=== PATIENT | female | born 1985 | race Caucasian/White ===

== ENCOUNTER → 2016-12-19 | Outpatient (CLI) | payer BC ==
[2016-12-19 10:14] LABS: PROLACTIN 18.49 ng/mL
== END | disposition home or self-care (01) ==
LOC: C.LAB1850 07:03 → MERGE 07:03
PROVIDERS: ATTEND Obstetrics & Gynecology
DX: Z31.41 Encounter for fertility testing (principal)

== ENCOUNTER → 2017-02-03 | Outpatient (CLI) | payer BC | END | disposition home or self-care (01) | LOC: C.RAD1850 07:35 | PROVIDERS: ATTEND Obstetrics & Gynecology | DX: E03.9 Hypothyroidism, unspecified (principal) ==

== ENCOUNTER → 2017-04-16 | Outpatient (CLI) | payer BC ==
--- NOTE | 2017-04-16 10:58 | DIAGNOSTIC IMAGING REPORT ---
HYSTEROSALPINGOGRAM CLINICAL HISTORY: FERTILITY TESTING, DR TERRELL DOING COMPARISON STUDY: No previous studies for comparison. FINDINGS: Fluoroscopic assistance was provided for Dr. Terrell during hysterosalpingogram. 24 seconds of fluoroscopic time was utilized. 2 fluoroscopic spot images were acquired. Both fallopian tubes filled a normal fashion. There is free spillage bilaterally. Small filling defects within the uterus are felt to represent air bubbles IMPRESSION: The fallopian tubes appear normal bilaterally. There was free bilateral spillage. Electronically signed by: Fernando Hussein M.D. 04/16/2017 10:57 AM Dictated Date/Time: 04/16/2017 10:56 AM
--- NOTE | 2017-04-16 13:47 | OPERATIVE REPORT ---
DATE OF OPERATION: 04/16/2017 PROCEDURE NOTE The patient is a 31-year-old nulliparous white female who presents for ongoing infertility evaluation. She underwent hystersalpingogram using radiopaque dye and sterile technique. The patient tolerated the procedure well. Findings will be sent to Dr. De La Fuente and [facility]. I attest to the content of the Intraoperative Record and any orders documented therein. Any exception s are noted below.
== END | disposition home or self-care (01) ==
LOC: C.RAD 10:06
PROVIDERS: ATTEND Obstetrics & Gynecology
DX: Z31.41 Encounter for fertility testing (principal)

== ENCOUNTER → 2017-05-11 | Outpatient (CLI) | payer BC | END | disposition home or self-care (01) | LOC: C.LAB1850 13:18 | PROVIDERS: ATTEND Specialist | DX: O09.00 Supervision of pregnancy with history of infertility, unspecified trimester (principal); Z3A.00 Weeks of gestation of pregnancy not specified ==

== ENCOUNTER → 2017-05-11 | Outpatient (CLI) | payer BC ==
--- NOTE | 2017-05-11 16:27 | DIAGNOSTIC IMAGING REPORT ---
TRANS VAG-FEMALE PELVIS HISTORY: Pain PCOS, INFERTILITY COMPARISON: None. FINDINGS: Uterus: 6.4 cm maximum dimension Endometrial stripe: 3 mm Right ovary: 3 cm maximum dimension with normal vascular flow . Several sub-7 mm follicular cysts these measure 7, 6, and 5 mm respectively Left ovary: 2.3 cm maximum dimension with normal vascular flow . Several sub-8 mm follicular cysts. These measure 8 and 6 mm respectively Miscellaneous:No pelvic free fluid. IMPRESSION: No significant abnormality identified within the pelvis. Several small ovarian follicular cysts The above report was generated using voice recognition software. It may contain grammatical, syntax or spelling errors. Electronically signed by: Romain Santos M.D. 05/11/2017 4:26 PM Dictated Date/Time: 05/11/2017 4:24 PM
== END | disposition home or self-care (01) ==
LOC: C.ULTR 14:42
PROVIDERS: ATTEND Specialist
DX: N97.9 Female infertility, unspecified (principal); E28.2 Polycystic ovarian syndrome

== ENCOUNTER → 2017-05-19 | Outpatient (CLI) | payer BC | END | disposition home or self-care (01) | LOC: C.LAB1850 12:57 | PROVIDERS: ATTEND Obstetrics & Gynecology Reproductive Endocrinology | DX: Z31.41 Encounter for fertility testing (principal) ==

== ENCOUNTER → 2017-07-14 | Outpatient (CLI) | payer BC | END | disposition home or self-care (01) | LOC: C.LAB1850 13:14 | PROVIDERS: ATTEND Specialist | DX: O09.00 Supervision of pregnancy with history of infertility, unspecified trimester (principal); Z3A.00 Weeks of gestation of pregnancy not specified ==

== ENCOUNTER → 2017-08-04 | Outpatient (CLI) | payer BC | END | disposition home or self-care (01) | LOC: C.LAB1850 15:09 | PROVIDERS: ATTEND Specialist | DX: O09.00 Supervision of pregnancy with history of infertility, unspecified trimester (principal) ==

== ENCOUNTER → 2017-11-30 | Outpatient (CLI) | payer BC | END | disposition home or self-care (01) | LOC: C.PAPS 18:34 | PROVIDERS: ATTEND Physician Assistant | DX: Z01.419 Encounter for gynecological examination (general) (routine) without abnormal findings (principal) ==

== ENCOUNTER 2018-12-12 01:42 | Inpatient (IN) ==
[2018-12-12] MEDS ORDERED: LACTATED RINGER'S 1,000 ML IV PRN ×3 (02:01→08:52)
[2018-12-12] MEDS ORDERED: LACTATED RINGER'S 1,000 ML IV SCH (02:15)
[2018-12-12 02:24] LABS: Hematocrit (blood only) 34.5 % (37-47); Hemoglobin 11.8 g/dL (12.0-16.0); Nucleated RBC # (auto) 0.03 K/uL (0-0); Nucleated RBC % (auto) 0.2 %; Platelet Count 284 K/uL (130-400); RDW Coefficient of Variation 13.4 % (11.5-14.5); RDW Standard Deviation 40.8 fL (36.4-46.3); Red Blood Count 4.06 M/uL (4.2-5.4); White Blood Count 15.76 K/uL (4.8-10.8)
[2018-12-12] MEDS ORDERED: ePHEDrine sulfate 50 MG/ML AMP ONE (02:33)
[2018-12-12] MEDS ORDERED: BUPIVACAINE 0.25% 30 ML VIAL ONE (02:33)
[2018-12-12] MEDS ORDERED: fentaNYL citrate 100 MCG/2 ML VIAL ONE ×2 (02:34→05:52)
[2018-12-12 02:35] LABS: Mean Corpuscular Hgb Conc 34.2 g/dL (32-36)
[2018-12-12] MEDS ORDERED: fentaNYL 2MCG/ML ROPIV 1.25MG/ML 100 ML BAG EPI ONE (02:35)
--- NOTE | 2018-12-12 03:06 | History & Physical Report ---
Date of Service December 12, 2018 Assessment & Plan (1) 40 weeks gestation of : (2) Active labor at term: admit iv labs. fhts categ 1, desires epidural, will bolus ivf and consult anesthesia. arom when comfortable. History of Present Illness Chief Complaint: regular ctx Primary Care Provider: Jose J Mckeon 32yo at 40+wks ega presents to L&D with above cc. She has had contractions all day 12/11/18 that worsened in intensity and became more frequent. Advised to come to hospital for labor check. No rom or vb. FM. On arrival cx was 6cm. Desires epidural. PNC c/b 1. hypothyroidism, on meds 2. IVF/ICSI, growth u/s nl. nl echo. 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 PNL rh pos, ri OBH: g1 GYNH: nl paps, no stds PMH: hypothyroid PSH: wisdom teeth Allg: nkda Meds: synthroid, mvi SH: no tob/etoh/drugs FH: no beverly anom or mr Allergies Allergy/AdvReac Type Severity Reaction Status Date / Time No Known Allergies Allergy Unverified 12/12/18 02:01 Home Medications Home Medications Medication Instructions Recorded Confirmed Type PNV cmb#95-ferrous fumarate-FA 1 tab PO PM 12/06/18 12/12/18 History [] levothyroxine [Synthroid] 50 mcg PO 5XWK 12/06/18 12/12/18 History levothyroxine [Synthroid] 100 mcg PO 2XWK 12/06/18 12/12/18 History prednisone 60 mg PO DAILY 7 Days #21 tab 12/06/18 12/12/18 Rx Patient History Medical History Hypothyroid PCOS (polycystic ovarian syndrome) Surgical History Hx of wisdom tooth extraction (Resolved) Social History Preferred Language: Korean Beliefs That Will Affect Care: None marital status: Current Living Situation: Spouse Other Information That Helps Us Care for You: No Feels Safe at Home: Yes Smoking Status: Never smoker Hx Alcohol Use: No Hx Substance Use: No Review of Systems per hpi Physical Exam Vital Signs (Past 24 Hours): Last Vital Signs Temp 36.4 C L 12/12/18 01:52 Resp 18 12/12/18 01:52 Constitutional: WD/WN, vitals as above Genitourinary: Manual OB Exam: + cervical dilation 6 cm (per nurse) OB Exam Monitor Tracing: + external FHT monitor used (125 mod variability, reactive for gest age), + external uterine monitor used (q3-4), + category I and + normal FHT variability
--- NOTE | 2018-12-12 03:27 | Anesthesiology Consultation ---
Date of Service December 12, 2018 Assessment & Plan Chart Review Chart Review: Acceptable Risk for Surgery Consults Requested none History Height/Weight Height: 5 ft 2 in Weight: 78.018 kg Allergies Allergy/AdvReac Type Severity Reaction Status Date / Time No Known Allergies Allergy Unverified 12/12/18 02:01 Medications Home Medications Medication Instructions Recorded Confirmed Last Taken PNV cmb#95-ferrous fumarate-FA 1 tab PO PM 12/06/18 12/12/18 12/11/18 08:00 [] levothyroxine [Synthroid] 50 mcg PO 5XWK 12/06/18 12/12/18 12/11/18 08:00 levothyroxine [Synthroid] 100 mcg PO 2XWK 12/06/18 12/12/18 12/11/18 08:00 prednisone 60 mg PO DAILY 7 Days #21 tab 12/06/18 12/12/18 12/11/18 08:00 Active Medications Generic Name Dose Route Start Last Admin Trade Name Freq PRN Reason Stop Dose Admin Lactated Ringer's 1,000 mls @ 999 mls/hr 12/12/18 02:01 12/12/18 03:00 Lr IV 01/11/19 02:00 125 mls/hr .Q1H1M PRN Infusion (Pre-Anesthesia) Past Medical History Medical History Hypothyroid PCOS (polycystic ovarian syndrome) Past Family History Family History Other Diabetes Hypertension Past Surgical History Surgical History Hx of wisdom tooth extraction (Resolved) Social History Smoking Status: Never smoker Hx Alcohol Use: No Hx Substance Use: No Physical Exam Vital Signs Last Vital Signs Temp 36.4 C L 12/12/18 01:52 Pulse 71 12/12/18 03:25 Resp 18 12/12/18 03:17 BP 125/73 12/12/18 03:25 Pulse Ox 99 12/12/18 03:24 Testing Laboratory Results 12/12/18 02:14
[2018-12-12] MEDS ORDERED: NALOXONE HCL 0.4 MG/1 ML VIAL/CARP IV PRN (03:36)
[2018-12-12] MEDS ORDERED: fentaNYL 2MCG/ML ROPIV 1.25MG/ML 100 ML BAG EPI PRN (03:36)
[2018-12-12] MEDS ORDERED: DiphenhydrAMINE HCL 50 MG/ML VIAL IV PRN (03:36)
[2018-12-12] MEDS ORDERED: ePHEDrine sulfate 50 MG/ML AMP IV PRN (03:36)
[2018-12-12] MEDS ORDERED: NALOXONE HCL 1 MG in SODIUM CHLORIDE 0.9% 1000ML 1,000 ML IV PRN (03:36)
[2018-12-12] MEDS ORDERED: NALBUPHINE HCL INJ 10 MG/ML AMP IV PRN (03:36)
--- NOTE | 2018-12-12 03:56 | Obstetrical Progress Note ---
Date of Service December 12, 2018 Assessment & Plan (1) Active labor at term: nursing to reexamine pt in 2hr and begin 2nd stage if complete. 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 (4) Thin meconium stained amniotic fluid: reviewed management and tried to reassure Subjective comfortable with epidural. apparently today was last dose of prednisone for estrada's palsy--was given 60mg po qd Physical Exam Vital Signs (Past 24 Hours): Last Vital Signs Temp 36.4 C L 12/12/18 01:52 Pulse 60 12/12/18 03:49 Resp 18 12/12/18 03:30 BP 128/77 12/12/18 03:48 Pulse Ox 99 12/12/18 03:49 Constitutional: WD/WN, vitals as above Genitourinary: Manual OB Exam: + cervical dilation 8 cm, + cervical effacement 100%, + station 0 and + amniotic fluid (AROM) meconium OB Exam Monitor Tracing: + external FHT monitor used (125 mod variability), + external uterine monitor used (q3-4) and + category I
[2018-12-12] MEDS ORDERED: LIDOCAINE HCL 2% MPF (LOCAL) 5 ML VIAL INFIL ONE (05:52)
[2018-12-12] MEDS ORDERED: OXYTOCIN 30 UNITS/500ML NSS ONE (06:21)
--- NOTE | 2018-12-12 08:03 | Obstetrical Progress Note ---
Date of Service December 12, 2018 Assessment & Plan (1) 40 weeks gestation of : (2) Thin meconium stained amniotic fluid: (3) Active labor at term: continued 2nd stage. fhts reassuring. Subjective pt is pushing, complaining of being exhausted Physical Exam Vital Signs (Past 24 Hours): Last Vital Signs Temp 35.9 C L 12/12/18 05:32 Pulse 78 12/12/18 07:59 Resp 18 12/12/18 05:39 BP 126/98 12/12/18 07:48 Pulse Ox 93 12/12/18 07:59 Constitutional: WD/WN, vitals as above Genitourinary: Manual OB Exam: + cervical dilation 10 cm, + cervical effacement 100% and + station + 2 OB Exam Monitor Tracing: + external FHT monitor used (130 mod variability), + external uterine monitor used (q2) and + normal FHT variability
[2018-12-12] MEDS ORDERED: OXYTOCIN 30 UNITS/500 ML BAG IV PRN ×2 (08:52→12:03)
--- NOTE | 2018-12-12 08:55 | Obstetrical Progress Note ---
Date of Service December 12, 2018 Assessment & Plan (1) 40 weeks gestation of : (2) Active labor at term: (3) Thin meconium stained amniotic fluid: pushing effectively at times. enc to cont 2nd stage. fhts reassuring, categ 1. discussed vacuum assistance but feel pt is making progress if feels like she can continue pushing effectively. will add pitocin to strengthen ctx Subjective feels exhausted, pushing for 2.5hr Physical Exam Vital Signs (Past 24 Hours): Last Vital Signs Temp 35.9 C L 12/12/18 05:32 Pulse 67 12/12/18 08:49 Resp 18 12/12/18 05:39 BP 132/78 12/12/18 08:48 Pulse Ox 96 12/12/18 08:49 Constitutional: WD/WN, vitals as above Genitourinary: Manual OB Exam: + cervical dilation 10 cm, + cervical effacem ent 100% and + station + 3 OB Exam Monitor Tracing: + external FHT monitor used (130 mod variability), + external uterine monitor used (q2-3) and + normal FHT variability
[2018-12-12] MEDS ORDERED: METHYLERGONOVINE MALEATE 0.2 MG/ML AMP ONE (10:44)
[2018-12-12] MEDS ORDERED: miSOPROStol 200 MCG TAB PR ONE (10:50)
[2018-12-12] MEDS ORDERED: METHYLERGONOVINE MALEATE 0.2 MG/ML AMP IM STA (10:50)
[2018-12-12] MEDS ORDERED: miSOPROStol 200 MCG TAB ONE (10:54)
--- NOTE | 2018-12-12 11:24 | Delivery Summary ---
DATE OF OPERATION: 12/12/2018 The patient had dilated to complete and pushed for 4 hours and was exhausted. She was requesting assistance. She was counseled about versus vacuum-assisted delivery. Her exam was completely dilated, completely effaced and +4 station. Her bladder was drained under sterile conditions for clear urine. She was counseled along with her spouse and they desire to proceed with vacuum assistance. The vacuum was applied and over 3 pushes and 3 pulls with 1 pop-off, the cephalic was delivered via VAVD over 4th degree perineal laceration. The perineum was tearing with delivery of the cephalic and there was a small bridge of tissue that was cut and that resulted in delivery of the cephalic. The mouth and nose were bulb suctioned. The shoulders and body were delivered with ease. The infant was vigorous and crying at . The cord was clamped at 30 seconds of life and was to the maternal abdomen where the cord was then doubly clamped and cut. Vaginal bleeding was brisk and it appeared that the placenta was and it was then delivered intact spontaneously with gentle traction. Dilute Pitocin was infused; however, hemostasis was inadequate. 800 mcg of rectal Cytotec was administered followed by 0.2 of IM Methergine due to uterine tone being poor. The bonding machine operator had been performing bimanual massage and did sweep the uterus x1 with no evidence of retained products. With time, the uterine tone improved. At this point, the laceration could begun to be repaired which included 3-0 Vicryl to repair the vaginal portion to the level of the hymenal ring. A rectal exam was performed and the 4-0 Vicryl was used to reapproximate the rectal mucosa. The sphincter tissue was reapproximated using 2-0 Vicryl in interrupted sutures. The rest of the perineal repair was performed with 3-0 Vicryl. The bleeding continued to be well controlled. The EBL was estimated to be 600 mL. Mother and baby were stable in recovery. I attest to the content of the Intraoperative Record and any orders documented therein. Any exceptions are noted below. MTDD
[2018-12-12] MEDS ORDERED: ACETAMINOPHEN 325 MG TAB PO PRN (12:03)
[2018-12-12] MEDS ORDERED: DIPHTHERIA/TETANUS/PERTUSSIS 0.5 ML SYR/VIAL IM ONE (12:03)
[2018-12-12] MEDS ORDERED: SUPERCREAM 0.870% 15 GM JAR EXT PRN (12:03)
[2018-12-12] MEDS ORDERED: BENZOCAINE 20% AER SPR 82.5 GM CAN EXT PRN (12:03)
[2018-12-12] MEDS ORDERED: HYDROCORTISONE ACETATE 25 MG SUPP PR PRN (12:03)
[2018-12-12] MEDS ORDERED: OXYTOCIN 20 UNITS in LACTATED RINGER'S 1,000 ML IV SCH (12:30)
[2018-12-12] MEDS ORDERED: LEVOTHYROXINE SODIUM 100 MCG TABLET PO SCH (13:00)
[2018-12-12] MEDS: IBUPROFEN 600 MG TAB PO PRN ×3 (13:16→23:48)
[2018-12-12] MEDS: OXYCODONE/ACETAMINOPHEN 5mg/325mg TAB PO PRN ×2 (16:32→20:18)
--- NOTE | 2018-12-12 16:48 | Anesthesia Procedure Note ---
Date of Service December 12, 2018 Anesthesia Post Epidural Note Vital Signs Vital Signs: Temp Pulse Resp BP Pulse Ox 38.0 C H 84 18 133/79 94 12/12/18 14:38 12/12/18 14:38 12/12/18 14:38 12/12/18 14:38 12/12/18 10:34 Pain Intensity Bilateral Abdomen: Pain Intensity: 7 Notes Mental Status: alert / awake / arousable and participated in evaluation Nausea / Vomiting: adequately controlled Pain: adequately controlled Airway Patency, RR, SpO2: stable & adequate BP & HR: stable & adequate Hydration State: stable & adequate Neuraxial Anesthesia: was administered and sensory block is resolving Anesthetic Complications: no major complications apparent and Pt Satisfied with anesthetic care Epidural: Removed without complications and With tip intact
[2018-12-12] MEDS: DOCUSATE SODIUM 100 MG CAP PO SCH (20:17)
[2018-12-13] MEDS: IBUPROFEN 600 MG TAB PO PRN ×3 (03:30→21:45)
[2018-12-13] MEDS: LEVOTHYROXINE SODIUM 50 MCG TABLET PO SCH (06:22)
[2018-12-13 06:39] LABS: Hematocrit (blood only) 26.5 % (37-47); Hemoglobin 9.1 g/dL (12.0-16.0); Mean Corpuscular Hgb Conc 34.3 g/dL (32-36); Mean Corpuscular Volume 83.6 fL (80-100); Mean Platelet Volume 9.4 fL (7.4-10.4); Platelet Count 260 K/uL (130-400); RDW Coefficient of Variation 13.6 % (11.5-14.5); RDW Standard Deviation 41.7 fL (36.4-46.3); Red Blood Count 3.17 M/uL (4.2-5.4); White Blood Count 21.16 K/uL (4.8-10.8)
--- NOTE | 2018-12-13 07:38 | Obstetrical Progress Note ---
Date of Service December 13, 2018 Assessment & Plan (1) 40 weeks gestation of : PPD#1, will plan for DC home tomorrow. Patient has one remaining dose of prednisone for her Estraad's Palsy. Subjective PPD#1 doing well. Ambulating, eating/drinking ok. Moderate lochia. No concerns. Physical Exam Vital Signs (Past 24 Hours): Last Vital Signs Temp 36.6 C 12/13/18 03:25 Pulse 84 12/13/18 03:25 Resp 20 12/13/18 03:25 BP 114/77 12/13/18 03:25 Pulse Ox 96 12/12/18 16:50 Physical Exam: Gen AAOx3 NAD CV RRR L CTAB Abd soft, NTTP, FF below Umb Ext No edema
[2018-12-13] MEDS ORDERED: predniSONE 20 MG TAB PO ONE (07:45)
[2018-12-13] MEDS: DOCUSATE SODIUM 100 MG CAP PO SCH ×2 (08:37→20:21)
[2018-12-13] MEDS: OXYCODONE/ACETAMINOPHEN 5mg/325mg TAB PO PRN (10:16)
[2018-12-13] MEDS ORDERED: CEFAZOLIN 3000MG/72.5 ML BAG IV STA (11:24)
[2018-12-13] MEDS ORDERED: CEFAZOLIN 2000MG 2,000 MG/15 ML SYR IV STA (11:28)
--- NOTE | 2018-12-13 11:32 | Obstetrical Progress Note ---
Date of Service December 13, 2018 Assessment & Plan (1) Fourth degree laceration of perineum during delivery, : due to OASIS repair guidelines rec dose of ancef. explained to pt I had neglected to order. rec now x 1 and she accept. order placed, pharmacy notified and nursing aware. pt notes she is doing well, sore but doing ok. apologized for not getting to see her this am. will see her at 6wk pp. she expresses gratitude for my help with her delivery. Physical Exam Vital Signs (Past 24 Hours): Last Vital Signs Temp 36.6 C 12/13/18 08:47 Pulse 86 12/13/18 08:47 Resp 16 12/13/18 08:47 BP 111/77 12/13/18 08:47 Pulse Ox 98 12/13/18 08:47
[2018-12-14] MEDS: LEVOTHYROXINE SODIUM 50 MCG TABLET PO SCH (05:57)
[2018-12-14] MEDS: IBUPROFEN 600 MG TAB PO PRN ×3 (05:57→14:07)
[2018-12-14] MEDS: DOCUSATE SODIUM 100 MG CAP PO SCH (08:38)
--- NOTE | 2018-12-14 08:57 | Obstetrical Progress Note ---
Date of Service December 14, 2018 Assessment & Plan (1) 40 weeks gestation of : PPD# 2 doing well. DC home today. Instructions reviewed. Subjective Ambulation: ambulating normally Voiding: no voiding problems Passing Gas:: No Diet Tolerance:: regular diet Lochia:: Moderate Feeding Type:: breast feeding Physical Exam Vital Signs (Past 24 Hours) Last Vital Signs Temp 36.6 C 12/14/18 07:59 Pulse 66 12/14/18 07:59 Resp 17 12/14/18 07:59 BP 124/84 12/14/18 07:59 Pulse Ox 98 12/14/18 07:59 Gen AAO x3 NAD CV RRR L CTAB Abd soft NTTP fundus firm Ext no edema
--- NOTE | 2018-12-16 07:55 | Discharge Summary ---
Date of Service Date of admission 12/12/18 Date of discharge 12/14/18 Admission HPI Per Admitting Provider See full admitting H&P Hospital Course (1) 40 weeks gestation of : (2) Active labor at term: (3) Thin meconium stained amniotic fluid: (4) Fourth degree laceration of perineum during delivery, : (5) Status post vacuum-assisted vaginal delivery: 32yo at 40+wks eggee presented to L&D with above regular contractions. She has had contractions all day 12/11/18 that worsened in intensity and became more frequent. Advised to come to hospital for labor check. No leaking fluid or bleeding. Was 6cm on arrival and requested epidural. Labor progressed and patient entered 2nd stage. She pushed for about 4hours and requested assistance for maternal exhaustion. She had a successful vacuum assisted vaginal delivery with fourth degree perineal laceration. She did require some additional agents due to poor uterine tone for hemostasis. She was given a single dose of post repair antibiotics. Day one hemoglobin was 9.1. She recovered well and was stable for discharge home on day number 2. Instructions reviewed. Followup in 6 weeks reviewed.
[2018-12-17] MEDS ORDERED: LEVOTHYROXINE SODIUM 100 MCG TABLET PO SCH (06:30)
== END 2018-12-14 14:50 | disposition home or self-care (01) | DRG 768 ==
LOC: OPB 01:42 → 4S1 01:45 → 4S2 16:43
DX: Z3A.40 40 weeks gestation of pregnancy; G51.0 Bell's palsy; Z14.8 Genetic carrier of other disease; Z37.0 Single live birth; O75.81 Maternal exhaustion complicating labor and delivery; O77.0 Labor and delivery complicated by meconium in amniotic fluid; Z83.3 Family history of diabetes mellitus; E03.9 Hypothyroidism, unspecified; O70.3 Fourth degree perineal laceration during delivery; O99.354 Diseases of the nervous system complicating childbirth; O99.284 Endocrine, nutritional and metabolic diseases complicating childbirth